=== PATIENT | female | born 2000 | race Caucasian/White ===

== ENCOUNTER 2022-11-22 21:40 | Inpatient (IN) | payer OTHER ==
[2022-11-22 22:11] LABS: AMNISURE ROM TEST NEGATIVE
[2022-11-23 01:37] LABS: HEMATOCRIT 36.6 % (35.0-50.0); HEMOGLOBIN 12.4 g/dL (12.0-18.0); MCH 30.7 (27-36); MCHC 33.9 g/dl (30-36); MCV 90.5 fl (81-99); RBC 4.04 M/ul (4.3-5.7); RDW 13.1 (10.5-15.0)
[2022-11-23 01:39] LABS: AMPHETAMINES, UR NEGATIVE (NEGATIVE); BARBITURATES, UR NEGATIVE (NEGATIVE); BENZODIAZEPINES, UR NEGATIVE (NEGATIVE); BUPRENORPHINE,UR NEGATIVE (NEGATIVE); COCAINE, UR NEGATIVE (NEGATIVE); MARIJUANA (THC), UR NEGATIVE (NEGATIVE); MDMA, UR NEGATIVE (NEGATIVE); METHADONE, UR NEGATIVE (NEGATIVE); METHAMPHETAMINE, UR NEGATIVE (NEGATIVE); OPIATES, UR NEGATIVE (NEGATIVE); OXYCODONE, UR NEGATIVE (NEGATIVE); PHENCYCLIDINE, UR NEGATIVE (NEGATIVE); TRICYCLIC ANTIDEPRESSANT, UR NEGATIVE (NEGATIVE)
--- NOTE | 2022-11-23 01:59 | NUR ---
PT WAS SWABBED FOR COVID AT 01.45AM.
[2022-11-23 02:31] LABS: INFLUENZA B NAA NEGATIVE (NEGATIVE); RESPIRATORY SYNCYTIAL VIR NAA NEGATIVE (NEGATIVE)
[2022-11-23 02:52] LABS: ABO O; ANTIBODY SCREEN NEGATIVE; RH POSITIVE
--- NOTE | 2022-11-23 03:22 | PR ---
[facility] [address] [facility] [place], [place] [address] Signed Progress Notes IP Datetime Report Generated by CPN: 11/23/2022 03:22 PROGRESS NOTES: [id number] Impression: Normal Progression of Labor; Reassuring Heart Rate Other Procedures: Cx exam per RN Plan: Continue Present Management; Anticipate Vaginal Delivery VITAL SIGNS: [id number] Vital Signs: Reviewed; Within Normal Limits EXAM: [id number] Dilatation: 5.0 Effacement: 80 Station: -2 MEMBRANES: [id number] Comments: Pt seen and examined. S/P epidural but pt still very uncomfortable. Will have anesthesia evaluate epidural. FHT Cat 1. Continue expectant management. Anticipate FETUS A: [id number] FHR Baseline: 130 Variability: Moderate 6-25bpm Accelerations: 15X15 Decelerations: None FHR Category: Category I Presentation: Vertex Comments on Fetus A: No evidence of metabolic acidosis FETUS B: [id number] Signing Physician: Stanley Seay DO Copies: ~ *Electronically Signed* 11/23/22 032 STANLEY SEAY (HERBIE) DO PATIENT NAME: LOLIS RIVERA PROGRESS NOTE DATE OF : 99 PHYSICIAN: STANLEY SEAY) DO RPT #: [id number] REPORT IS CONFIDENTIAL AND NOT TO BE RELEASED WITHOUT AUTHORIZATION
--- NOTE | 2022-11-23 05:01 | PR ---
[facility] [address] [place], [place] [address] Signed Progress Notes IP Datetime Report Generated by CPN: 11/23/2022 05:01 PROGRESS NOTES: [id number] Impression: Normal Progression of Labor; Reassuring Heart Rate Procedures: Artificial ROM; Sterile Vag Exam Other Procedures: Cx exam per RN Plan: Continue Present Management Informed Consent Obtain: Vaginal Delivery VITAL SIGNS: [id number] Vital Signs: Reviewed; Within Normal Limits EXAM: [id number] Dilatation: 8.0 Effacement: 90 Station: -2 Contractions: q 2-3 minutes MEMBRANES: [id number] Comments: Pt seen and examined. Doing well. Comfortable w/ contractions. Pt now 8/90 w/ bloody show and a large bulging bag of aceves. Recommend AROM and pt agrees. AROM performed for moderate amount clear fluid. Discussed anticipated . All questions answered FETUS A: [id number] FHR Baseline: 130 Variability: Moderate 6-25bpm Accelerations: 15X15 Decelerations: None FHR Category: Category I Presentation: Vertex Comments on Fetus A: No evidence of metabolic acidosis FETUS B: [id number] Signing Physician: Stanley Rose DO Copies: ~ *Electronically Signed* 11/23/22 050 STANLEY ROSE (HERBIE) DO PATIENT NAME: LOLIS RIVERA PROGRESS NOTE DATE OF : 99 PHYSICIAN: STANLEY ROSE (JD) DO RPT #: [id number] REPORT IS CONFIDENTIAL AND NOT TO BE RELEASED WITHOUT AUTHORIZATION
--- NOTE | 2022-11-23 05:29 | PR ---
[facility] [address] [place], [place] [address] Signed Progress Notes IP Datetime Report Generated by CPN: 11/23/2022 05:29 PROGRESS NOTES: [id number] Impression: Normal Progression of Labor; Reassuring Heart Rate Procedures: Intrauterine Pressure Catheter; Scalp Electrode; Sterile Vag Exam Other Procedures: Cx exam per RN Plan: Continue Present Management; Anticipate Vaginal Delivery Informed Consent Obtain: Vaginal Delivery VITAL SIGNS: [id number] Vital Signs: Reviewed; Within Normal Limits EXAM: [id number] Dilatation: 9.0 Effacement: 90 Station: -2 Contractions: q 2-3 min MEMBRANES: [id number] Comments: Pt seen and examined. Difficult to trace and some variables noted. RN placed FSE but did not stay attached. IUPC and FSE placed. Bloody show noted. Pt now 9cm and cervix very stretchy. Discussed anticipated delivery. All questions answered FETUS A: [id number] FHR Baseline: 130 Variability: Moderate 6-25bpm Accelerations: 15X15 Decelerations: Variable FHR Category: Category II Presentation: Vertex Comments on Fetus A: No evidence of metabolic acidosis FETUS B: [id number] Signing Physician: Stanley Seay DO Copies: ~ *Electronically Signed* 11/23/22 0529 STANLEY SEAY (HERBIE) DO PATIENT NAME: LOLIS RIVERA PROGRESS NOTE DATE OF : 99 PHYSICIAN: STANLEY SEAY (JD) DO RPT #: [id number] REPORT IS CONFIDENTIAL AND NOT TO BE RELEASED WITHOUT AUTHORIZATION
[2022-11-23 08:07] VITALS: BP 100/57
[2022-11-23 10:04] LABS: HEMATOCRIT 31.7 % (35.0-50.0); HEMOGLOBIN 10.6 g/dL (12.0-18.0); MCH 30.4 (27-36); MCHC 33.4 g/dl (30-36); MCV 90.9 fl (81-99); RBC 3.48 M/ul (4.3-5.7); RDW 13.1 (10.5-15.0)
[2022-11-24 06:00] LABS: HEMATOCRIT 30.4 % (35.0-50.0); HEMOGLOBIN 10.3 g/dL (12.0-18.0); MCH 31.1 (27-36); MCHC 33.8 g/dl (30-36); MCV 91.8 fl (81-99); RBC 3.31 M/ul (4.3-5.7); RDW 13.5 (10.5-15.0)
--- NOTE | 2022-11-24 11:09 | PR ---
[facility] [facility] [address] [place], [place] [address] Signed PP Progress Notes Datetime Report Generated by CPN: 11/24/2022 11:09 SUBJECTIVE: [id number] Nausea/Vomiting: Denies Flatus: Yes Bowel Movement: Yes Vital Signs: [id number] Vital Signs: Reviewed; Within Normal Limits Abdomen/Uterus: Normal Lochia: Normal Extremities: Normal Progress: Normal IMPRESSION/PLAN/PROCEDURES: [id number] Impression: Normal Progression Plan: Discharge Procedures: None Progress Notes: 22 yo s/p vaginal delivery. Doing well. PPD #1. Denies DAY, CP, SOB, F/C, N/V, RUQ pain, changes in vision, vaginal discharge. Tolerating regular diet, ambulating, voiding, pain controlled, +flatus. O: AFVSS Abd: Soft, non-tender. Fundus firm, below umbilicus. Musc: MAJOR. No C/C/E. A/P: Patient well. Discharge home. Signing Physician: Belkis Rowe MD Copies: ~ *Electronically Signed* 11/24/22 1109 BELKIS ROWE MD PATIENT NAME: LOLIS RIVERA PROGRESS NOTE DATE OF : 99 PHYSICIAN: BELKIS ROWE MD RPT #: [id number] REPORT IS CONFIDENTIAL AND NOT TO BE RELEASED WITHOUT AUTHORIZATION
== END 2022-11-24 11:47 | disposition home or self-care (01) | DRG 807 ==
LOC: FBCO 21:40 → FBC 11-23 01:16
PROVIDERS: ADMIT Obstetrics & Gynecology; ATTEND Obstetrics & Gynecology
PROC: 10E0XZZ Delivery of Products of Conception, External Approach (ICD-10-PCS; principal; 2022-11-23)
PROC: 3E0R3BZ Introduction of Anesthetic Agent into Spinal Canal, Percutaneous Approach (ICD-10-PCS; 2022-11-23)
PROC: 00HU33Z Insertion of Infusion Device into Spinal Canal, Percutaneous Approach (ICD-10-PCS; 2022-11-23)
PROC: 10H07YZ Insertion of Other Device into Products of Conception, Via Natural or Artificial Opening (ICD-10-PCS; 2022-11-23)
PROC: 0HQ9XZZ Repair Perineum Skin, External Approach (ICD-10-PCS; 2022-11-23)
PROC: 10907ZC Drainage of Amniotic Fluid, Therapeutic from Products of Conception, Via Natural or Artificial Opening (ICD-10-PCS; 2022-11-23)
DX: O45.93 Premature separation of placenta, unspecified, third trimester (principal); Z37.0 Single live birth; O70.0 First degree perineal laceration during delivery; O76 Abnormality in fetal heart rate and rhythm complicating labor and delivery; O69.1XX0 Labor and delivery complicated by cord around neck, with compression, not applicable or unspecified; O99.284 Endocrine, nutritional and metabolic diseases complicating childbirth; E03.9 Hypothyroidism, unspecified; Z20.822 Contact with and (suspected) exposure to COVID-19; Z3A.38 38 weeks gestation of pregnancy; Z79.899 Other long term (current) drug therapy; Z79.890 Hormone replacement therapy
CPT/HCPCS: 01960; 36415; 84112; 85027; 86850; 86900; 86901; 87502; A9270; C9803; J2001; J2590; J2795; J7121; U0002